=== PATIENT | male | born 1970 | race Caucasian/White ===

== ENCOUNTER → 2017-01-21 | Outpatient (CLI) | payer MEDICARE, MEDICAID ==
[~2017-01-21] VITALS: Ht 162.6 cm; Wt 65.8 kg
[~2017-01-21] MED LIST: ADV100INH INH; ALBU17IN INH; CELE20TA PO; DEPA500T2 PO; FLUT11IN INH; GABA-282 PO; LEXA1TAB PO; LIDOCAINE 2% INJ 100 MG/5 ML SDV (FOR ANES.) As Ordered ONE; NAPR500T PO; NS 1,000 ML IV SCH; OMEP20CA3 PO; OMEP40CA2 PO; PHENYLephrine HCL 500 MCG/5 ML (100MCG/ML) SYRINGE (J2370) As Ordered ONE; PROAIR INH; PROPOFOL 500 MG/50 ML VIAL As Ordered ONE; SERO200T PO; SPIR1CAP INH; TRAZ50TA4 PO; VITA-121 PO; ZYRT10CA PO; no home meds
--- NOTE | 2017-01-21 10:16 | ROOR ---
Patient Name: Casey Ojeda Procedure Date: 01/21/2017 9:53 AM Date of : 1970 Age: 46 Room: [facility] Gender: Male Note Status: Finalized Procedure: Upper GI endoscopy + Biopsies Indications: Heartburn Providers: Kyle Gerber MD Referring MD: Eugenio DEL VALLE MD Requesting Provider: Medicines: Monitored Anesthesia Care Complications: No immediate complications. Procedure: Pre-Anesthesia Assessment: - The heart rate, respiratory rate, oxygen saturations, blood pressure, adequacy of pulmonary ventilation, and response to care were monitored throughout the procedure. The Endoscope was introduced through the mouth, and advanced to the second part of duodenum. The upper GI endoscopy was accomplished without difficulty. The patient tolerated the procedure well. Findings: The Z-line was variable and was found 40 cm from the incisors. One superficial esophageal ulcer with no bleeding and no stigmata of recent bleeding was found 40 cm from the incisors. Biopsies were taken with a cold forceps for histology. A medium-sized hiatal hernia was present. No other significant abnormalities were identified in a careful examination of the stomach. The exam of the duodenum was otherwise normal. Impression: - Z-line variable, 40 cm from the incisors. - Non-bleeding esophageal ulcer. Biopsied. - Medium-sized hiatal hernia. - The examination was otherwise normal. Recommendation: - Await pathology results. - Discharge patient to home. - Continue present medications. - Await pathology results. - Return to referring physician. - Check Portal Online for Path Results. - The findings and recommendations were discussed with the patient's family. Kyle Gerber MD Kyle Gerber MD 01/21/2017 10:15:47 AM This report has been signed electronically. Number of Addenda: 0 Note Initiated On: 01/21/2017 9:53 AM Estimated Blood Loss: Estimated blood loss: none.
--- NOTE | 2017-01-21 10:30 | ROOR ---
Patient Name: Casey Ojeda Procedure Date: 01/21/2017 9:54 AM Date of : 1970 Age: 46 Room: [facility] Gender: Male Note Status: Finalized Procedure: Colonoscopy to Cecum + Biopsy Polypectomy + Biopsies Indications: Clinically significant diarrhea of unexplained origin Providers: Kyle Gerber MD Referring MD: Eugenio DEL VALLE MD Requesting Provider: Medicines: Monitored Anesthesia Care Complications: No immediate complications. Procedure: Pre-Anesthesia Assessment: - The heart rate, respiratory rate, oxygen saturations, blood pressure, adequacy of pulmonary ventilation, and response to care were monitored throughout the procedure. The Colonoscope was introduced through the anus and advanced to the cecum, identified by appendiceal orifice and ileocecal valve. The colonoscopy was performed without difficulty. The patient tolerated the procedure well. The quality of the bowel preparation was excellent. Findings: The perianal and digital rectal examinations were normal. Non-bleeding internal hemorrhoids were found during retroflexion. The hemorrhoids were small and Grade I (internal hemorrhoids that do not prolapse). A small polyp was found at 60 cm proximal to the anus. The polyp was sessile. The polyp was removed with a cold biopsy forceps. Resection and retrieval were complete. Biopsies for histology were taken with a cold forceps from the ascending colon and transverse colon for evaluation of microscopic colitis. The exam was otherwise without abnormality on direct and retroflexion views. Impression: - Non-bleeding internal hemorrhoids. - One small polyp at 60 cm proximal to the anus, removed with a cold biopsy forceps. Resected and retrieved. - The examination was otherwise normal on direct and retroflexion views. - Biopsies were taken with a cold forceps from the ascending colon and transverse colon for evaluation of microscopic colitis. - The exam was otherwise normal to the cecum. Recommendation: - Patient has a contact number available for emergencies. The signs and symptoms of potential delayed complications were discussed with the patient. Return to normal activities tomorrow. Written discharge instructions were provided to the patient. - High fiber diet. - Discharge patient to home. - Continue present medications. - Await pathology results. - Repeat colonoscopy in 5 years for surveillance based on pathology results. - Return to referring physician. - Check Portal Online for Path Results. - The findings and recommendations were discussed with the patient's family. Kyle Gerber MD Kyle Gerber MD 01/21/2017 10:30:30 AM This report has been signed electronically. Number of Addenda: 0 Note Initiated On: 01/21/2017 9:54 AM Estimated Blood Loss: Estimated blood loss: none.
[2017-01-21 10:55] VITALS: BP 126/60
== END ==
LOC: M OPP 08:57
PROVIDERS: ATTEND Internal Medicine Gastroenterology
DX: Z12.11 Encounter for screening for malignant neoplasm of colon (principal); Z80.0 Family history of malignant neoplasm of digestive organs; D12.6 Benign neoplasm of colon, unspecified; K64.0 First degree hemorrhoids; R19.7 Diarrhea, unspecified; R12 Heartburn; K44.9 Diaphragmatic hernia without obstruction or gangrene; K22.10 Ulcer of esophagus without bleeding; K22.8 Other specified diseases of esophagus; F17.200 Nicotine dependence, unspecified, uncomplicated; F41.9 Anxiety disorder, unspecified; F32.9 Major depressive disorder, single episode, unspecified; J45.909 Unspecified asthma, uncomplicated; J44.9 Chronic obstructive pulmonary disease, unspecified; K21.9 Gastro-esophageal reflux disease without esophagitis; R29.818 Other symptoms and signs involving the nervous system; Z79.899 Other long term (current) drug therapy; Z88.2 Allergy status to sulfonamides
CPT/HCPCS: 43239; 45380; 88305; 99156; 99157; J2370

== ENCOUNTER → 2017-04-22 | Outpatient (CLI) | payer MEDICARE, MEDICAID ==
[~2017-04-22] MED LIST changes: -LIDOCAINE 2% INJ 100 MG/5 ML SDV (FOR ANES.) As Ordered ONE; -NS 1,000 ML IV SCH; -PHENYLephrine HCL 500 MCG/5 ML (100MCG/ML) SYRINGE (J2370) As Ordered ONE; -PROPOFOL 500 MG/50 ML VIAL As Ordered ONE; +TRAZ50TA11 PO; -TRAZ50TA4 PO
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
== END | disposition home or self-care (01) ==
LOC: M PAIN 11:20
PROVIDERS: ATTEND Nurse Practitioner Family
DX: G89.29 Other chronic pain (principal); M51.26 Other intervertebral disc displacement, lumbar region; J44.9 Chronic obstructive pulmonary disease, unspecified; K44.9 Diaphragmatic hernia without obstruction or gangrene; F31.9 Bipolar disorder, unspecified; K22.10 Ulcer of esophagus without bleeding; Z79.899 Other long term (current) drug therapy; Z79.51 Long term (current) use of inhaled steroids; Z88.2 Allergy status to sulfonamides; Z88.8 Allergy status to other drugs, medicaments and biological substances; F17.210 Nicotine dependence, cigarettes, uncomplicated

== ENCOUNTER → 2017-05-06 | Outpatient (CLI) | payer MEDICARE, MEDICAID ==
[~2017-05-06] MED LIST changes: +ISOVUE-M 300 61% 15ML VIAL (Q9967) As Ordered ONE; +LIDOCAINE 1% SDV INJ 30 ML VIAL As Ordered ONE; +diazePAM 5 MG TAB As Ordered ONE; +methylPREDNISolone SUSP 40 MG/ML (DEPO-medrol) VIAL (J1030) As Ordered ONE; +oxyCODONE 5MG TAB As Ordered ONE
--- NOTE | 2017-05-06 10:54 | REP ---
Partial lumbar spine series: Four views. History: Injection procedure for pain. 10 seconds of fluoroscopy time is reported. Findings: A sequence of four fluoroscopically obtained last image hold procedural spot radiographs of the lumbar spine document needle position and contrast injection associated with injection procedure. Signed by Abelardo Mayberry MD 05/06/2017 02:28 P
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
== END ==
LOC: M PAIN 08:40
PROVIDERS: ATTEND Anesthesiology
DX: G89.29 Other chronic pain (principal); M51.17 Intervertebral disc disorders with radiculopathy, lumbosacral region; Z79.899 Other long term (current) drug therapy; Z88.2 Allergy status to sulfonamides; J30.9 Allergic rhinitis, unspecified
CPT/HCPCS: 62323; J1030; Q9967

== ENCOUNTER → 2017-05-15 | Outpatient (REF) ==
[~2017-05-15] MED LIST changes: -ISOVUE-M 300 61% 15ML VIAL (Q9967) As Ordered ONE; -LIDOCAINE 1% SDV INJ 30 ML VIAL As Ordered ONE; -diazePAM 5 MG TAB As Ordered ONE; -methylPREDNISolone SUSP 40 MG/ML (DEPO-medrol) VIAL (J1030) As Ordered ONE; -oxyCODONE 5MG TAB As Ordered ONE
== END ==
LOC: M LAB 09:40
PROVIDERS: ATTEND Nurse Practitioner Adult Health
DX: Z02.1 Encounter for pre-employment examination (principal)

== ENCOUNTER → 2017-05-19 | Outpatient (REF) ==
--- NOTE | 2017-05-19 11:21 | REP ---
Chest x-ray PA and lateral: 05/19/2017. Comparison CT chest 09/25/2016, PA chest with ribs 08/29/2016. Clinical history: Employee health. The two views show the lungs hyperinflated. There are bullous emphysematous changes bilaterally in the upper lung zones with giant bulla in the left upper lung zone. Some underlying fibrotic changes and COPD. I see no pleural effusion or lateral pleural thickening. There is no acute infiltrate or mass. Heart is not enlarged. The aorta is normal. Airway is intact. Mediastinal and hilar contours unchanged. Bony thorax shows no acute compression deformity and is stable. There is no free air under the diaphragms. Impression: 1. COPD with bullous emphysematous changes as before with giant bulla in the left upper lung zone. 2. No acute infiltrate, cardiomegaly, edema, atelectasis or other acute finding. Signed by Dhaval Sen MD 05/19/2017 06:57 P
== END ==
LOC: M RAD 10:40
PROVIDERS: ATTEND Nurse Practitioner Adult Health
DX: Z02.1 Encounter for pre-employment examination (principal)

== ENCOUNTER → 2017-05-21 | Outpatient (CLI) | payer MEDICARE, MEDICAID ==
--- NOTE | 2017-06-11 00:35 | ECWPNPC ---
PATIENT NAME: NORMA DODSON : 1970 GENDER: MALE VISIT DATE: 05/21/2017 DISCHARGE DATE: 05/21/17 1110 VISIT LOCKED DATE TIME: PHYSICIAN: KIP MIDDLETON RESOURCE: KIP MIDDLETON REASON FOR APPOINTMENT 1. POST PROCEDURE HISTORY OF PRESENT ILLNESS HISTORY OF PRESENT ILLNESS: PAIN THE PATIENT DESCRIBES THE PAIN... FALL RISK SCREENING: SCREENING :NO FALLS IN THE PAST YEAR TODAY'S VISIT: NOTES: S/P LESB COMPLETED ON05/06/17. PAIN IS NOT CENTERED INNLOW BACK AND IS DESCRIBED ACHY. HAS NO PAIN RADIATINT TO HIPS OR LEGS. NO N/T/IN FEET. HAS PERSISTANT WEAKNESS. HARD TO DO STAIRS. SLEEP REMAINS DISRUPTED THIS IS RETIREMENT. . CURRENT MEDICATIONS TAKING DEPAKOTE ER 500 MG TABLET EXTENDED RELEASE 24 HOUR ORALLY TWICE DAILY TAKING ALBUTEROL SULFATE HFA 108 (90 BASE) MCG/ACT AEROSOL SOLUTION 2 PUFFS NEEDED INHALATION EVERY 4 HRS TAKING OMEPRAZOLE 40 MG CAPSULE DELAYED RELEASE 1 CAPSULE ORALLY ONCE A DAY TAKING CELEXA 20 MG TABLET 1 TABLET ORALLY ONCE A DAY TAKING ZYRTEC 10MG ORALLY DAILY TAKING GABAPENTIN 600 MG TABLET 1 TABLET ORALLY THREE TIMES A DAY TAKING ADVAIR DISKUS 250-50 MCG/DOSE AEROSOL POWDER BREATH ACTIVATED 1 PUFF INHALATION TWICE A DAY TAKING SPIRIVA HANDIHALER 18 MCG CAPSULE INHALATION DAILY TAKING VITAMIN D3 5000 UNIT CAPSULE 1 CAPSULE ORALLY ONCE A DAY TAKING IBUPROFEN 200 MG TABLET 1 TABLET WITH FOOD OR MILK NEEDED ORALLY EVERY 6 HRS MEDICATION LIST REVIEWED AND RECONCILED WITH THE PATIENT PAST MEDICAL HISTORY ASTHMA, COPD ULCERATIVE ESOPHAGUS HIATAL HERNIA DDD WITH EXTRUDED DISCS BIPOLAR ALLERGIES SULFA (FOR ALLERGY USE ONLY): HIVES AND SWELLING: ALLERGY SEASONAL: CONGESTION, ITCHY EYES, : ALLERGY NSAIDS: GI BLEED/ULCERS: CONTRAINDICATION SURGICAL HISTORY CLUB FEET, LEFT LEG TENDON REPAIR OF UPPER THIGH. AT HOSPITALIZATION/MAJOR DIAGNOSTIC PROCEDURE [facility] REVIEW OF SYSTEMS REVIEWED BY: PROVIDER: KIP SUTHERLAND . CONSTITUTIONAL: ANY CHANGE IN YOUR MEDICAL CONDITION? NO . CHILLS NO . FEVER NO . INFECTION: DO YOU HAVE NEW INFECTIONS? NO . DO YOU HAVE HISTORY OF MRSA? NO . MUSCULOSKELETAL: ANY NEW PATTERNS OF PAIN OR NUMBNESS? YES, PT STATES LESI 05/06/17, PREPROCEDURE PAIN WAS 7/10, POST PROCEDURE PAIN WAS 2/10, CREEPING TO 6/10 TODAY . GASTROENTEROLOGY: ANY NEW CHANGE IN BOWEL CONTROL? NO . GENITOURINARY: ANY NEW CHANGE IN BLADDER CONTROL? NO . IS THERE A CHANCE YOU COULD BE ? NO . HEMATOLOGY/LYMPH: DO YOU TAKE ANY BLOOD THINNERS? (FOR EXAMPLE- COUMADIN, PLAVIX, AGGRENOX, PLATEL, PRADAXA, OR XARELTO) NO . WHEN WAS YOUR LAST DOSE? DATE: TIME: . NEUROLOGY: HAVE YOU FALLEN IN THE PAST 6 MONTHS? NO . ANY NEW EXTREMITY NUMBNESS OR WEAKNESS? NO . CARDIOLOGY: DO YOU HAVE A PACEMAKER OR DEFIBRILLATOR? NO . RESPIRATORY: HAVE YOU BEEN SICK IN THE PAST WEEK? NO . FEVER NO . FLU LIKE SYMPTOMS? NO . COUGH NO . INTEGUMENTARY: DO YOU HAVE ANY RASHES OR OPEN SORES? NO . ALLERGIC/IMMUNO: ARE YOU ALLERGIC TO SHELLFISH OR IV DYE? NO . ANY NEW ALLERGIES? NO . PSYCHIATRIC: DO YOU HAVE THOUGHTS OF HURTING YOURSELF OR SOMEONE ELSE? NO . ARE YOU ABUSED, NEGLECTED, OR IN AN UNSAFE ENVIRONMENT? NO . ENDOCRINOLOGY: ARE YOU DIABETIC? NO . OTHER: DO YOU NEED ANY PRESCRIPTIONS? NO . IF YES, PLEASE LIST: ____ . ANY NEW PROBLEMS WITH YOUR MEDICATIONS? NO . WHEN DID YOU LAST EAT? ____ . WHEN DID YOU LAST DRINK? ____ . WHAT DID YOU LAST DRINK? ____ . NAME OF PERSON DRIVING YOU HOME? ____ . DO YOU HAVE ANY OTHER QUESTIONS OR CONCERNS NO . VITAL SIGNS WT 150.6 LBS, HT 64 IN, BMI 25.85 INDEX, BP 142/93 MM HG, HR 69 /MIN, RR 18 /MIN, TEMP 98.5 F, OXYGEN SAT % 96, SAFE IN ENV? (Y/N) YES, NA INITIALS MP 1030. EXAMINATION GENERAL EXAMINATION: PSYCHALERT , ORIENTED X 3 , APPROPRIATE MOOD AND AFFECT . LUNGS:CLEAR TO AUSCULTATION BILATERALLY. HEART:HEART RATE REGULAR, NORMAL S1S2, NO MURMURS, CLICK OR RUBS. MUSCULOSKELETAL:POINT TENDERNERNESS OVER LUMBAR SPINOUS PROCESSES, TRIGGER POINTS AND TIGHT FIBROUS BANDS OVER LUMBOSACRAL SXIS. MUSCLE STRENGTH TESTING 5/5 RIGHT UPPER AND LOWER EXTREMITIES, AND IN LEFT UPPER EXTREMITY; 5-/5 IN LEFT LOWER EXTREMITY. . NEUROLOGIC EXAM:DTR'S 4+ WITH CLONUS RIGHTLOWER EXTREMITY , 2 + WITHOUT CLONUS LEFT. NO SENSORY DEFIECIT TO IGHT TOUCH LOWER EXTREMITES. PLANTAR RESPONSE IS FLEXOR.. 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 TREATMENT INTERVERTEBRAL DISC DISORDERS WITH RADICULOPATHY, LUMBOSACRAL REGION START TIZANIDINE HCL TABLET, 2 MG, 1 TABLET NEEDED, ORALLY, BID, 30 DAY(S), 60 TABLET, REFILLS 0 INJECTION FACET JOINT/NERVE LUMBAR/SACRALKIP MIDDLETON 05/21/2017 11:00:43 AM > THERAPEUTIC BILATERAL LUMBAR FACET BLOCK PROCEDURE CODES FA211 ESTABILISHED PATIENT [facility] FACILITY CHARGE G8730 PAIN ASSESS POS TOOL F/U PLAN DOC G8427 DOC MEDS VERIFIED W/PT OR RE DISPOSITION & COMMUNICATION FOLLOW UP AFTER INJECTION (REASON: CHECK AUTH FOR [facility] [employer] LUMBAR FACET BLOCK AT L3-4, L4-5 AND L5-S1) ELECTRONICALLY SIGNED BY DELVIN BAL ON 06/10/2017 AT 06:13 PM EDT DISCLAIMER : THIS IS A VISIT SUMMARY EXTRACTED FROM THE [employer] CHART. IT IS NOT A COPY OF THE [employer] PROGRESS NOTE. GENEVIEVE
== END | disposition home or self-care (01) ==
LOC: M PAIN 10:00
PROVIDERS: ATTEND Nurse Practitioner Family
DX: G89.29 Other chronic pain (principal); M51.17 Intervertebral disc disorders with radiculopathy, lumbosacral region; M12.88 Other specific arthropathies, not elsewhere classified, other specified site; J44.9 Chronic obstructive pulmonary disease, unspecified; F31.9 Bipolar disorder, unspecified; Z79.899 Other long term (current) drug therapy; Z79.51 Long term (current) use of inhaled steroids; Z88.2 Allergy status to sulfonamides; Z88.8 Allergy status to other drugs, medicaments and biological substances

== ENCOUNTER → 2017-06-03 | Outpatient (CLI) | payer MEDICARE, MEDICAID ==
--- NOTE | 2017-06-24 01:51 | ECWPNPC ---
PATIENT NAME: NORMA DODSON : 1970 GENDER: MALE VISIT DATE: 06/03/2017 DISCHARGE DATE: 06/03/17 1349 VISIT LOCKED DATE TIME: PHYSICIAN: NICHOLAS STEEN RESOURCE: NICHOLAS STEEN REASON FOR APPOINTMENT 1. LOW BACK PAIN HISTORY OF PRESENT ILLNESS HISTORY OF PRESENT ILLNESS: PAIN THE PATIENT DESCRIBES THE PAIN... 47 YEAR OLD MALE PATIENT WITH HISTORY OF CHRONIC LOW BACK PAIN. PATIENT DESCRIBES HIS PAIN ACHING AND HAVING IT ALL THE TIME WITH A PAIN SCORE OF 6/10. PATIENT REPORTS BEING ON AN 6 MONTH ANTIBIOTIC FOR TB PROFILAXIS. CURRENTLY THE PATIENT IS JUST USING TIZANIDINE FOR THE PAIN THIS TIME. EPIDURAL INJECTION IN THE PAST HAS HELP HIM WITH THE LEG PAIN. PATIENT DENIES UNEXPLAINABLE WEIGHT LOSS, FEVER, CHILLS, NEW CHANGES ON HIS URINARY OR BOWEL CONTROL. FALL RISK SCREENING: SCREENING :NO FALLS IN THE PAST YEAR CURRENT MEDICATIONS TAKING DEPAKOTE ER 500 MG TABLET EXTENDED RELEASE 24 HOUR ORALLY TWICE DAILY TAKING ALBUTEROL SULFATE HFA 108 (90 BASE) MCG/ACT AEROSOL SOLUTION 2 PUFFS NEEDED INHALATION EVERY 4 HRS TAKING OMEPRAZOLE 40 MG CAPSULE DELAYED RELEASE 1 CAPSULE ORALLY ONCE A DAY TAKING CELEXA 20 MG TABLET 1 TABLET ORALLY ONCE A DAY TAKING ZYRTEC 10MG ORALLY DAILY TAKING GABAPENTIN 600 MG TABLET 1 TABLET ORALLY THREE TIMES A DAY TAKING ADVAIR DISKUS 250-50 MCG/DOSE AEROSOL POWDER BREATH ACTIVATED 1 PUFF INHALATION TWICE A DAY TAKING SPIRIVA HANDIHALER 18 MCG CAPSULE INHALATION DAILY TAKING TIZANIDINE HCL 2 MG TABLET 1 TABLET NEEDED ORALLY BID TAKING ISONIAZID 300 MG TABLET 1 TABLET ORALLY ONCE A DAY TAKING VITAMIN B6 200 MG TABLET 1 TABLET ORALLY ONCE A DAY DISCONTINUED VITAMIN D3 5000 UNIT CAPSULE 1 CAPSULE ORALLY ONCE A DAY DISCONTINUED IBUPROFEN 200 MG TABLET 1 TABLET WITH FOOD OR MILK NEEDED ORALLY EVERY 6 HRS MEDICATION LIST REVIEWED AND RECONCILED WITH THE PATIENT PAST MEDICAL HISTORY ASTHMA, COPD ULCERATIVE ESOPHAGUS HIATAL HERNIA DDD WITH EXTRUDED DISCS BIPOLAR LATANT TB ALLERGIES SULFA (FOR ALLERGY USE ONLY): HIVES AND SWELLING: ALLERGY SEASONAL: CONGESTION, ITCHY EYES, : ALLERGY NSAIDS: GI BLEED/ULCERS: CONTRAINDICATION REVIEW OF SYSTEMS REVIEWED BY: PROVIDER: NICHOLAS STEEN MD . CONSTITUTIONAL: ANY CHANGE IN YOUR MEDICAL CONDITION? YES, DIAGNOSED WITH LATENT TB AND IS NOW ON ANTIBIOTICS . CHILLS NO . FEVER NO . INFECTION: DO YOU HAVE NEW INFECTIONS? NO . DO YOU HAVE HISTORY OF MRSA? NO . MUSCULOSKELETAL: ANY NEW PATTERNS OF PAIN OR NUMBNESS? NO . GASTROENTEROLOGY: ANY NEW CHANGE IN BOWEL CONTROL? NO . GENITOURINARY: ANY NEW CHANGE IN BLADDER CONTROL? NO . IS THERE A CHANCE YOU COULD BE ? NO . HEMATOLOGY/LYMPH: DO YOU TAKE ANY BLOOD THINNERS? (FOR EXAMPLE- COUMADIN, PLAVIX, AGGRENOX, PLATEL, PRADAXA, OR XARELTO) NO . WHEN WAS YOUR LAST DOSE? DATE: TIME: . NEUROLOGY: HAVE YOU FALLEN IN THE PAST 6 MONTHS? NO . ANY NEW EXTREMITY NUMBNESS OR WEAKNESS? NO . CARDIOLOGY: DO YOU HAVE A PACEMAKER OR DEFIBRILLATOR? NO . RESPIRATORY: HAVE YOU BEEN SICK IN THE PAST WEEK? NO . FEVER NO . FLU LIKE SYMPTOMS? NO . COUGH NO . INTEGUMENTARY: DO YOU HAVE ANY RASHES OR OPEN SORES? NO . ALLERGIC/IMMUNO: ARE YOU ALLERGIC TO SHELLFISH OR IV DYE? NO . ANY NEW ALLERGIES? NO . PSYCHIATRIC: DO YOU HAVE THOUGHTS OF HURTING YOURSELF OR SOMEONE ELSE? NO . ARE YOU ABUSED, NEGLECTED, OR IN AN UNSAFE ENVIRONMENT? NO . ENDOCRINOLOGY: ARE YOU DIABETIC? NO . OTHER: DO YOU NEED ANY PRESCRIPTIONS? YES . IF YES, PLEASE LIST: TIZANIDINE . ANY NEW PROBLEMS WITH YOUR MEDICATIONS? NO . WHEN DID YOU LAST EAT? ____ . WHEN DID YOU LAST DRINK? ____ . WHAT DID YOU LAST DRINK? ____ . NAME OF PERSON DRIVING YOU HOME? ____ . DO YOU HAVE ANY OTHER QUESTIONS OR CONCERNS NO . VITAL SIGNS WT 152 LBS, HT 64 IN, BMI 26.09 INDEX, BP 138/82 MM HG, HR 70 /MIN, RR 18 /MIN, TEMP 98.2 F, OXYGEN SAT % 99%, NA INITIALS AW 1131, REVIEWED BY: CM. EXAMINATION : PATIENT IS ALERT O X 3 AND COOPERATIVE. TENDERNESS IN THE LOWER BACK AND PARASPINAL MUSCLE GROUP. MRI DONE ON 06/24/16 OF THE LUMBAR SPINE SHOWS DEGENERATIVE DIS DISEASE AND A DISC EXTRUSION AT L5-S1. ASSESSMENTS INTERVERTEBRAL DISC DISORDERS WITH RADICULOPATHY, LUMBAR REGION - M51.16 (PRIMARY) TREATMENT INTERVERTEBRAL DISC DISORDERS WITH RADICULOPATHY, LUMBAR REGION NOTES: WE DISCUSSED SEVERAL ISSUES WITH MR. DODSON'S PAIN MANAGEMENT CASE. AT THIS TIME THE PATIENT WILL CONTINUE WITH THE SAME MEDICATION REGIME BEFORE. I WOULD LIKE TO SPEAK WITH THE PATIENT'S PRIMARY DOCTOR ABOUT HOW TO MOVE FORWARD WITH INTERVENTIONS. NO INTERVENTIONS WILL BE HELD UNTIL I SPEAK WITH THE PRIMARY. HE IS CANDIDATE FOR FACET BLOCK V/S EPIDURALS DEPENDING ON THE CHARACTER OF THE PAIN. PATIENT WILL FOLLOW UP IN 3 WEEKS TO DISCUSS MEDICATION MANAGEMENT. INSTRUCTIONS WERE GIVEN, QUESTIONS WERE ANSWERED, PATIENT REPORTS UNDERSTANDING AND AGREES WITH THE PLAN. I, SANDY ARAGON, DOCUMENTED THE ABOVE INFORMATION ACTING A SCRIBE FOR DR. STEEN. I HAVE REVIEWED THE ABOVE DOCUMENT, WRITTEN BY SANDY TURKIBTrish AND I VERIFY THAT IT IS ACCURATE. PROCEDURE CODES FA211 ESTABILISHED PATIENT [facility] FACILITY CHARGE G8427 DOC MEDS VERIFIED W/PT OR RE G8730 PAIN ASSESS POS TOOL F/U PLAN DOC DISPOSITION & COMMUNICATION FOLLOW UP 3 WEEKS ELECTRONICALLY SIGNED BY NICHOLAS STEEN MD ON 06/23/2017 AT 12:29 PM EDT DISCLAIMER : THIS IS A VISIT SUMMARY EXTRACTED FROM THE [employer] CHART. IT IS NOT A COPY OF THE [employer] PROGRESS NOTE. GENEVIEVE
== END | disposition home or self-care (01) ==
LOC: M PAIN 11:15
PROVIDERS: ATTEND Anesthesiology
DX: G89.29 Other chronic pain (principal); M51.16 Intervertebral disc disorders with radiculopathy, lumbar region; J44.9 Chronic obstructive pulmonary disease, unspecified; K44.9 Diaphragmatic hernia without obstruction or gangrene; F31.9 Bipolar disorder, unspecified; K22.10 Ulcer of esophagus without bleeding; R76.11 Nonspecific reaction to tuberculin skin test without active tuberculosis; Z79.899 Other long term (current) drug therapy; Z79.51 Long term (current) use of inhaled steroids; Z88.2 Allergy status to sulfonamides; Z88.8 Allergy status to other drugs, medicaments and biological substances

== ENCOUNTER → 2017-06-15 | Outpatient (CLI) | payer MEDICARE, MEDICAID ==
--- NOTE | 2017-06-25 00:18 | ECWPNPC ---
PATIENT NAME: NORMA DODSON : 1970 GENDER: MALE VISIT DATE: 06/15/2017 DISCHARGE DATE: 06/15/17 1404 VISIT LOCKED DATE TIME: PHYSICIAN: KIP MIDDLETON RESOURCE: KIP MIDDLETON REASON FOR APPOINTMENT 1. LOW BACK HISTORY OF PRESENT ILLNESS HISTORY OF PRESENT ILLNESS: PAIN THE PATIENT DESCRIBES THE PAIN... FALL RISK SCREENING: SCREENING :NO FALLS IN THE PAST YEAR TODAY'S VISIT: NOTES: SAW DR DEL VALLE WHO FEELS THAT HE CAN HAVE HIS INJECTION IN ABOUT 2 MORE WEEKS. PER PT, DR DEL VALLE STATED HE WOULD FOLLOWUP WITH DR STEEN.RATES PAIN LEVEL TODAY 6/10. DESCRIBES PAIN ACHING AND SHOOTING. PAIN IS CENTERED IN LOW BACK HAS BEEN STARTED ON ABX FOR LATENT TB. 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 REPORTS PAIN LEVEL LOW BACK IS 6/10. NOTES PAIN IS WORSE AT THE END OF HIS WORK DAY AND AFTER HEAVY LIFTING. DESCRIBES PAIN ACHING AND SHOOTING. NOT RADIATION OF PAIN TO THE LEGS. CURRENT MEDICATIONS TAKING DEPAKOTE ER 500 MG TABLET EXTENDED RELEASE 24 HOUR ORALLY TWICE DAILY TAKING ALBUTEROL SULFATE HFA 108 (90 BASE) MCG/ACT AEROSOL SOLUTION 2 PUFFS NEEDED INHALATION EVERY 4 HRS TAKING OMEPRAZOLE 40 MG CAPSULE DELAYED RELEASE 1 CAPSULE ORALLY ONCE A DAY TAKING CELEXA 20 MG TABLET 1 TABLET ORALLY ONCE A DAY TAKING ZYRTEC 10MG ORALLY DAILY TAKING GABAPENTIN 600 MG TABLET 1 TABLET ORALLY THREE TIMES A DAY TAKING ADVAIR DISKUS 250-50 MCG/DOSE AEROSOL POWDER BREATH ACTIVATED 1 PUFF INHALATION TWICE A DAY TAKING SPIRIVA HANDIHALER 18 MCG CAPSULE INHALATION DAILY TAKING TIZANIDINE HCL 2 MG TABLET 1 TABLET NEEDED ORALLY BID, NOTES: PT HAS NOT RECEIVED YET TAKING ISONIAZID 300 MG TABLET 1 TABLET ORALLY ONCE A DAY TAKING VITAMIN B6 200 MG TABLET 1 TABLET ORALLY ONCE A DAY MEDICATION LIST REVIEWED AND RECONCILED WITH THE PATIENT PAST MEDICAL HISTORY ASTHMA, COPD ULCERATIVE ESOPHAGUS HIATAL HERNIA DDD WITH EXTRUDED DISCS BIPOLAR LATANT TB ALLERGIES SULFA (FOR ALLERGY USE ONLY): HIVES AND SWELLING: ALLERGY SEASONAL: CONGESTION, ITCHY EYES, : ALLERGY NSAIDS: GI BLEED/ULCERS: CONTRAINDICATION SURGICAL HISTORY CLUB FEET, LEFT LEG TENDON REPAIR OF UPPER THIGH. AT HOSPITALIZATION/MAJOR DIAGNOSTIC PROC[facility]URE [facility] REVIEW OF SYSTEMS REVIEWED BY: PROVIDER: KIP PORTERP . CONSTITUTIONAL: ANY CHANGE IN YOUR MEDICAL CONDITION? NO . CHILLS NO . FEVER NO . INFECTION: DO YOU HAVE NEW INFECTIONS? NO . DO YOU HAVE HISTORY OF MRSA? NO . MUSCULOSKELETAL: ANY NEW PATTERNS OF PAIN OR NUMBNESS? NO . GASTROENTEROLOGY: ANY NEW CHANGE IN BOWEL CONTROL? NO . GENITOURINARY: ANY NEW CHANGE IN BLADDER CONTROL? NO . IS THERE A CHANCE YOU COULD BE ? NO . HEMATOLOGY/LYMPH: DO YOU TAKE ANY BLOOD THINNERS? (FOR EXAMPLE- COUMADIN, PLAVIX, AGGRENOX, PLATEL, PRADAXA, OR XARELTO) NO . WHEN WAS YOUR LAST DOSE? DATE: TIME: . NEUROLOGY: HAVE YOU FALLEN IN THE PAST 6 MONTHS? NO . ANY NEW EXTREMITY NUMBNESS OR WEAKNESS? NO . CARDIOLOGY: DO YOU HAVE A PACEMAKER OR DEFIBRILLATOR? NO . RESPIRATORY: HAVE YOU BEEN SICK IN THE PAST WEEK? NO . FEVER NO . FLU LIKE SYMPTOMS? NO . COUGH NO . INTEGUMENTARY: DO YOU HAVE ANY RASHES OR OPEN SORES? NO . ALLERGIC/IMMUNO: ARE YOU ALLERGIC TO SHELLFISH OR IV DYE? NO . ANY NEW ALLERGIES? NO . PSYCHIATRIC: DO YOU HAVE THOUGHTS OF HURTING YOURSELF OR SOMEONE ELSE? NO . ARE YOU ABUSED, NEGLECTED, OR IN AN UNSAFE ENVIRONMENT? NO . ENDOCRINOLOGY: ARE YOU DIABETIC? NO . OTHER: DO YOU NEED ANY PRESCRIPTIONS? NO . IF YES, PLEASE LIST: ____ . ANY NEW PROBLEMS WITH YOUR MEDICATIONS? YES, PT STATES HE NEVER RECEIVED TIZANIDINE, [facility] TOLD HIM THEY NEVER RECEIVED THE ORDER . WHEN DID YOU LAST EAT? ____ . WHEN DID YOU LAST DRINK? ____ . WHAT DID YOU LAST DRINK? ____ . NAME OF PERSON DRIVING YOU HOME? ____ . DO YOU HAVE ANY OTHER QUESTIONS OR CONCERNS NO . VITAL SIGNS WT 150 LBS, HT 64 IN, BMI 25.74 INDEX, BP 167/89 MM HG, HR 69 /MIN, RR 18 /MIN, TEMP 97.0 F, OXYGEN SAT % 99%, NA INITIALS AW 1317, REVIEWED BY: EM. EXAMINATION GENERAL EXAMINATION: PSYCHALERT , ORIENTED X 3 , APPROPRIATE MOOD AND AFFECT . LUNGS:CLEAR TO AUSCULTATION BILATERALLY. HEART:HEART RATE REGULAR, NORMAL S1S2, NO MURMURS, CLICK OR RUBS. MUSCULOSKELETAL:POINT TENDERNERNESS OVER LUMBAR SPINOUS PROCESSES, TRIGGER POINTS AND TIGHT FIBROUS BANDS OVER LUMBOSACRAL SXIS. MUSCLE STRENGTH TESTING 5/5 UPPER AND LOWER EXTREMITIES. NEUROLOGIC EXAM:DTR'S 4+ WITH CLONUS RIGHTLOWER EXTREMITY , 2 + WITHOUT CLONUS LEFT. NO SENSORY DEFIECIT TO IGHT TOUCH LOWER EXTREMITES. PLANTAR RESPONSE IS FLEXOR.. 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 TREATMENT INTERVERTEBRAL DISC DISORDERS WITH RADICULOPATHY, LUMBOSACRAL REGION REFILL TIZANIDINE HCL TABLET, 2 MG, 1 TABLET NEEDED, ORALLY, BID, 30 DAY(S), 60 TABLET, REFILLS 0 NOTES: SCHEDULE FOR THERAPEUTIC LUMBAR FACET BLOCK ,FACET JOINT INJECTION MATERIAL WAS PRINTED, REVIEWED AND GIVEN TO PT. PROCEDURE CODES FA211 ESTABILISHED PATIENT [facility] FACILITY CHARGE G8730 PAIN ASSESS POS TOOL F/U PLAN DOC G8427 DOC MEDS VERIFIED W/PT OR RE DISPOSITION & COMMUNICATION FOLLOW UP AFTER INJECTION (REASON: LOW BACK PAIN) ELECTRONICALLY SIGNED BY DELVIN BAL ON 06/24/2017 AT 08:49 AM EDT DISCLAIMER : THIS IS A VISIT SUMMARY EXTRACTED FROM THE [employer] CHART. IT IS NOT A COPY OF THE [employer] PROGRESS NOTE. GENEVIEVE
== END | disposition home or self-care (01) ==
LOC: M PAIN 13:15
PROVIDERS: ATTEND Nurse Practitioner Family
DX: G89.29 Other chronic pain (principal); M51.17 Intervertebral disc disorders with radiculopathy, lumbosacral region; M12.88 Other specific arthropathies, not elsewhere classified, other specified site; J44.9 Chronic obstructive pulmonary disease, unspecified; K22.10 Ulcer of esophagus without bleeding; K44.9 Diaphragmatic hernia without obstruction or gangrene; F31.9 Bipolar disorder, unspecified; R76.11 Nonspecific reaction to tuberculin skin test without active tuberculosis; Z79.899 Other long term (current) drug therapy; Z79.51 Long term (current) use of inhaled steroids; Z88.2 Allergy status to sulfonamides; Z88.8 Allergy status to other drugs, medicaments and biological substances

== ENCOUNTER → 2017-06-18 | Outpatient (REF) | payer MEDICARE, MEDICAID ==
[2017-06-18 14:35] LABS: ALBUMIN 3.5 GM/DL (3.2-5.2); ALBUMIN/GLOBULIN RATIO 0.95 (1.00-1.93); ALKALINE PHOSPHATASE 52 U/L (45-117); ALT/SGPT 29 U/L (12-78); ANION GAP 10 MEQ/L (8-16); AST/SGOT 27 U/L (15-37); BILIRUBIN,DIRECT < 0.1 MG/DL (0.0-0.2); BILIRUBIN,TOTAL 0.3 MG/DL (0.2-1.0); BLOOD UREA NITROGEN 13 MG/DL (7-18); CALCIUM LEVEL 8.7 MG/DL (8.5-10.1); CARBON DIOXIDE LEVEL 26 MEQ/L (21-32); CHLORIDE LEVEL 107 MEQ/L (98-107); CREATININE FOR GFR 0.67 MG/DL (0.70-1.30); GLOMERULAR FILTRATION RATE > 60.0 (>60); GLUCOSE, FASTING 85 MG/DL (70-105); POTASSIUM SERUM 4.8 MEQ/L (3.5-5.1); SODIUM LEVEL 143 MEQ/L (136-145); TOTAL PROTEIN 7.2 GM/DL (6.4-8.2)
[2017-06-18 18:30] LABS: MEAN CORPUSCULAR HGB CONC 33.5 g/dl (32.0-36.5); MEAN CORPUSCULAR VOLUME 101.3 fl (80.0-96.0); RED CELL DISTRIBUTION WIDTH 13.2 % (11.5-14.5); WHITE BLOOD COUNT 7.7 K/mm3 (4.0-10.0)
[2017-06-18 19:13] LABS: BANDS 2 % (< 11); EOSINOPHILS 2 % (0-5)
== END ==
LOC: M LAB REF 11:16
PROVIDERS: ATTEND Internal Medicine Pulmonary Disease
DX: R76.11 Nonspecific reaction to tuberculin skin test without active tuberculosis (principal)

== ENCOUNTER → 2017-06-29 | Outpatient (REF) | payer MEDICARE, MEDICAID | LOC: M SFHCPLAZ 09:47 | PROVIDERS: ATTEND Family Medicine | DX: N39.41 Urge incontinence (principal) | CPT/HCPCS: 81001; 87086; G0463 ==

== ENCOUNTER → 2017-07-06 | Outpatient (CLI) | payer MEDICARE, MEDICAID ==
[~2017-07-06] MED LIST changes: +BUPIVACAINE HCL 0.25% 30 ML VIAL As Ordered ONE; +ISOVUE-M 300 61% 15ML VIAL (Q9967) As Ordered ONE; +LIDOCAINE 1% SDV INJ 30 ML VIAL As Ordered ONE; +TRIAMCINOLONE ACETONIDE SUSP 40 MG/ML VIAL (J3301) As Ordered ONE; +diazePAM 5 MG TAB As Ordered ONE; +oxyCODONE 5MG TAB As Ordered ONE
--- NOTE | 2017-07-06 10:50 | REP ---
Partial lumbar spine series: Two views . History: Injection procedure for pain. 36 seconds of fluoroscopy time is reported. Findings: A sequence of two fluoroscopically obtained last image hold procedural spot radiographs of the lumbar spine document needle position and contrast injection associated with injection procedure. Signed by Abelardo Mayberry MD 07/06/2017 10:42 A
--- NOTE | 2017-07-07 00:53 | ECWPNPC ---
PATIENT NAME: NORMA DODSON : 1970 GENDER: MALE VISIT DATE: 07/06/2017 DISCHARGE DATE: 07/06/17 1015 VISIT LOCKED DATE TIME: PHYSICIAN: NICHOLAS STEEN RESOURCE: NICHOLAS STEEN REASON FOR APPOINTMENT 1. LUCI THER LUMBAR FACET HISTORY OF PRESENT ILLNESS HISTORY OF PRESENT ILLNESS: PAIN THE PATIENT DESCRIBES THE PAIN... FALL RISK SCREENING: SCREENING :NO FALLS IN THE PAST YEAR CURRENT MEDICATIONS TAKING ZYRTEC 10MG ORALLY DAILY, NOTES: TAKING VITAMIN B6 200 MG TABLET 1 TABLET ORALLY ONCE A DAY, NOTES: 07/05/17 TAKING ISONIAZID 300 MG TABLET 1 TABLET ORALLY ONCE A DAY, NOTES: 07/05/18 TAKING GABAPENTIN 600 MG TABLET 1 TABLET ORALLY THREE TIMES A DAY, NOTES: TAKING ALBUTEROL SULFATE HFA 108 (90 BASE) MCG/ACT AEROSOL SOLUTION 2 PUFFS NEEDED INHALATION EVERY 4 HRS, NOTES: HASN'T USED IN AWHILE TAKING SPIRIVA HANDIHALER 18 MCG CAPSULE INHALATION DAILY, NOTES: 07/05/17 TAKING OMEPRAZOLE 40 MG CAPSULE DELAYED RELEASE 1 CAPSULE ORALLY ONCE A DAY, NOTES: 07/05/17 TAKING TIZANIDINE HCL 2 MG TABLET 1 TABLET NEEDED ORALLY BID, NOTES: 07/05/17 TAKING DEPAKOTE ER 500 MG TABLET EXTENDED RELEASE 24 HOUR ORALLY TWICE DAILY, NOTES: 07/05/17 TAKING CELEXA 20 MG TABLET 1 TABLET ORALLY ONCE A DAY, NOTES: 07/05/17 TAKING NICODERM CQ 21 MG/24HR PATCH 24 HOUR 1 PATCH TO SKIN TRANSDERMAL ONCE A DAY, NOTES: 2 DAYS AGO TAKING BUPROPION HCL ER (SR) 150 MG TABLET EXTENDED RELEASE 12 HOUR 1 TABLET DAILY FOR 3 DAYS, THEN 1 TABLET TWICE DAILY ORALLY TWICE A DAY, NOTES: HASN'T STARTED YET TAKING SEREVENT DISKUS 50 MCG/DOSE AEROSOL POWDER BREATH ACTIVATED 2 PUFFS INHALATION TWICE A DAY, NOTES: 07/05/17 DISCONTINUED ADVAIR DISKUS 250-50 MCG/DOSE AEROSOL POWDER BREATH ACTIVATED 1 PUFF INHALATION TWICE A DAY MEDICATION LIST REVIEWED AND RECONCILED WITH THE PATIENT PAST MEDICAL HISTORY COPD - DR. CAIN LATENT TB - DR. CAIN ULCERATIVE ESOPHAGUS, HIATAL HERNIA - DR. MOE DDD WITH EXTRUDED DISCS - DR. STEEN OCCIPITAL NEURALGIA - DR. COLLINS BIPOLAR DO ALLERGIES SULFA (FOR ALLERGY USE ONLY): HIVES AND SWELLING: ALLERGY SEASONAL: CONGESTION, ITCHY EYES, : ALLERGY NSAIDS: GI BLEED/ULCERS: CONTRAINDICATION SOCIAL HISTORY GENERAL: TOBACCO USE ARE YOU A:CURRENT SMOKER HOW MANY CIGARETTES A DAY DO YOU SMOKE?11-20 HOW SOON AFTER YOU WAKE UP DO YOU SMOKE YOUR FIRST CIGARETTE?WITHIN 5 MIN HOW OFTEN DO YOU SMOKE CIGARETTES?EVERY DAY PATIENT COUNSELED ON THE DANGERS OF TOBACCO USE AND URGED TO QUIT:07/06/2017 ARE YOU INTERESTED IN QUITTING?READY TO QUIT PREVIOUS QUIT ATTEMPTS?YES, MORE THAN 6 MONTHS AGO. TRIED BUT NOT SUCCESSFUL COUNSELED THE PATIENT ON TOBACCO USE, CESSATION [id number]/18/2017 SMOKING CESSATION INFORMATION GIVEN07/06/2017 LUNG CANCER SCREENING SMOKING STATUS:CURRENT SMOKER ALCOHOL SCREENING DID YOU HAVE A DRINK CONTAINING ALCOHOL IN THE PAST YEAR?YES HOW MANY DRINKS DID YOU HAVE ON A TYPICAL DAY WHEN YOU WERE DRINKING IN THE PAST YEAR?7 TO 9 (3 POINTS) [id number] INTERPRETATIONPOSITIVE HOW OFTEN DID YOU HAVE A DRINK CONTAINING ALCOHOL IN THE PAST YEAR?FOUR OR MORE TIMES A WEEK (4 POINTS) HOW OFTEN DID YOU HAVE SIX OR MORE DRINKS ON ONE OCCASION IN THE PAST YEAR?DAILY OR ALMOST DAILY (4 POINTS) RECREATIONAL DRUG USE DRUG USE?YES HOW OFTEN AND HOW MUCH? OCCASIONALLY, LAST USED 6 MONTHS AGO CAFFEINE CAFFEINE USE?YES HOW OFTEN AND HOW MUCH? 10 BEVERAGES DAILY SEXUAL HX HAD SEX IN THE LAST 12 MONTHS (VAGINAL, ORAL, OR ANAL)?YES WITHWOMEN ONLY USE PROTECTION?NO PREVENTION STRATEGIES DISCUSSED:CONDOMS HAVE YOU EVER HAD AN STD?NO HIV / HEP-C SCREENING HIV TEST OFFERED TO PATIENT:YES DATE OFFERED:06/29/2017 TEST ACCEPTED:NO REASON:PATIENT DECLINED HEP-C TEST OFFERED TO PATIENT:NO BUDDHIST [id number] NONE LANGUAGE LANGUAGES SPOKEN:LITHUANIAN EDUCATION LEVEL OF EDUCATION:FINISHED HIGH SCHOOL LEARNING BARRIERS / SPECIAL NEEDS CHANGE FROM LAST VISIT?YES BARRIERS TO LEARNING?NO HEARING IMPAIRED?NO VISION IMPAIRED?YES :CORRECTIVE LENSES HAS GLASSES BUT DOESN'T WEAR THEM OFTEN. COGNITIVELY IMPAIRED?NO READINESS TO LEARN?YES LEARNING PREFERENCES?NO LEARNING CAPABILITIES PRESENT?YES EMOTIONAL BARRIERS?NO SPECIAL DEVICES?NO PIZZA COOK NEEDED?NO PAIN CLINIC PFS, CLERGY, PUBLIC HEALTH REFERRALS HAS THE PATIENT BEEN EDUCATED REGARDING HIS/HER PLAN OF CARE?YES HAS THE PATIENT BEEN EDUCATED REGARDING PAIN, THE RISK FOR PAIN, THE IMPORTANCE OF EFFECTIVE PAIN MANAGEMENT, AND THE PAIN ASSESSMENT PROCESS?YES PATIENT: ____. ADVANCE DIRECTIVES HEALTH CARE PROXY?NO WOULD YOU LIKE MORE INFORMATION? THINKS HE HAS THE INFORMATION AT HOME REVIEW OF SYSTEMS REVIEWED BY: PROVIDER: . CONSTITUTIONAL: ANY CHANGE IN YOUR MEDICAL CONDITION? NO . CHILLS NO . FEVER NO . INFECTION: DO YOU HAVE NEW INFECTIONS? NO . DO YOU HAVE HISTORY OF MRSA? NO . MUSCULOSKELETAL: ANY NEW PATTERNS OF PAIN OR NUMBNESS? NO . GASTROENTEROLOGY: ANY NEW CHANGE IN BOWEL CONTROL? NO . GENITOURINARY: ANY NEW CHANGE IN BLADDER CONTROL? NO . IS THERE A CHANCE YOU COULD BE ? NO . HEMATOLOGY/LYMPH: DO YOU TAKE ANY BLOOD THINNERS? (FOR EXAMPLE- COUMADIN, PLAVIX, AGGRENOX, PLATEL, PRADAXA, OR XARELTO) NO . WHEN WAS YOUR LAST DOSE? DATE: TIME: . NEUROLOGY: HAVE YOU FALLEN IN THE PAST 6 MONTHS? NO . ANY NEW EXTREMITY NUMBNESS OR WEAKNESS? NO . CARDIOLOGY: DO YOU HAVE A PACEMAKER OR DEFIBRILLATOR? NO . RESPIRATORY: HAVE YOU BEEN SICK IN THE PAST WEEK? NO . FEVER NO . FLU LIKE SYMPTOMS? NO . COUGH NO . INTEGUMENTARY: DO YOU HAVE ANY RASHES OR OPEN SORES? NO . ALLERGIC/IMMUNO: ARE YOU ALLERGIC TO SHELLFISH OR IV DYE? NO . ANY NEW ALLERGIES? NO . PSYCHIATRIC: DO YOU HAVE THOUGHTS OF HURTING YOURSELF OR SOMEONE ELSE? NO . ARE YOU ABUSED, NEGLECTED, OR IN AN UNSAFE ENVIRONMENT? NO . ENDOCRINOLOGY: ARE YOU DIABETIC? NO . OTHER: DO YOU NEED ANY PRESCRIPTIONS? NO . IF YES, PLEASE LIST: ____ . ANY NEW PROBLEMS WITH YOUR MEDICATIONS? NO . WHEN DID YOU LAST EAT? 07/05/17@1830 . WHEN DID YOU LAST DRINK? ____07/05/17@07/05/17 . WHAT DID YOU LAST DRINK? ____WATER . NAME OF PERSON DRIVING YOU HOME? ____ARPIT WARREN . DO YOU HAVE ANY OTHER QUESTIONS OR CONCERNS NO . VITAL SIGNS WT 154 LBS, HT 64 IN, BMI 26.43 INDEX, BP 138/83 MM HG, HR 66 /MIN, RR 18 /MIN, TEMP 98.7 F, OXYGEN SAT % 96, SAFE IN ENV? (Y/N) YES, REVIEWED BY: SHYANN. ASSESSMENTS SPONDYLOSIS OF LUMBAR REGION WITHOUT MYELOPATHY OR RADICULOPATHY - M47.816 (PRIMARY) SPONDYLOSIS OF LUMBOSACRAL REGION WITHOUT MYELOPATHY OR RADICULOPATHY - M47.817 PROCEDURES PN LUMBAR FACET BLOCK THERAPEUTIC PRE PROCEDURE DIAGNOSIS LUMBAR SPONDYLOSIS, LUMBOSACRAL SPONDYLOSIS POST PROCEDURE DIAGNOSIS LUMBAR SPONDYLOSIS, LUMBOSACRAL SPONDYLOSIS PROCEDURE BILATERAL L4-L5 AND BILATERAL L5-S1 LUMBAR FACET THERAPEUTIC BLOCK SURGEON DR. NICHOLAS STEEN SIGNING AGENT NONE ANESTHESIA LOCAL PRE PROCEDURE NOTE THE PATIENT HAS A HISTORY OF CHRONIC LOW BACK PAIN. I EVALUATE THE PATIENT AND REVIEWED THE CHART. I WENT OVER THE RISKS, ALTERNATIVES, AND BENEFITS ASSOCIATED WITH THIS PROCEDURE. THE PATIENT WOULD LIKE TO PROCEED AND GIVE CONSENT TO PERFORMED THE PROCEDURE. THE PATIENT DENIES UNEXPLAINABLE WEIGHT LOSS, FEVER, CHILLS, OR NEW CHANGES IN URINARY OR BOWEL CONTROL DESCRIPTION OF PROCEDURE THE PATIENT WAS BROUGHT TO THE PROCEDURE ROOM AND PLACED IN THE PRONE POSITION. THE LUMBOSACRAL AREA WAS CLEANED WITH CHLORAPREP SOLUTION AND DRAPED ASEPTICALLY. THE PROCEDURE WAS DONE UNDER STERILE CONDITIONS. I CHECKED LATERALITY AND THE LEVEL WHERE THE PROCEDURE WAS GOING TO BE PERFORMED WITH THE PATIENT AND THE SUPPORTING STAFF AT THE MOMENT OF THE TIME OUT IN THE PROCEDURE ROOM. UNDER FLUOROSCOPIC GUIDANCE, THE TARGET POINT WAS SELECTED AT THE RIGHT AND LEFT L4-L5 AND RIGHT AND LEFT L5-S1 FACET JOINT. TARGET POINT WAS SELECTED AFTER LATERAL ROTATION AND TILT OF THE MAGNIFIER OF THE C-ARM. LIDOCAINE 0.5% WAS USED TO NUMB THE SKIN AND THE SUBCUTANEOUS TISSUE BELOW IT. SPINAL NEEDLES, 22-GAUGE, WERE ADVANCED UNDER FLUOROSCOPIC GUIDANCE AND FOLLOWING PATIENT FEEDBACK UNTIL THE TARGETS WERE TOUCHED. THE POSITION OF THE NEEDLES WAS VERIFIED WITH AP AND LATERAL VIEWS. AFTER PROPER POSITION OF THE NEEDLES WAS ACHIEVED, ISOVUE-M DYE 30% 0.1 ML WAS INJECTED SHOWING ADEQUATE SPREAD OF THE DYE. THEN A SOLUTION OF 1.9 ML OF BUPIVACAINE 0.125% OF KENALOG 10 MG WAS INJECTED AT EACH SITE. THERE WAS NO EVIDENCE OF BLOOD, PARESTHESIA OR CEREBROSPINAL FLUID DURING THE PROCEDURE. THE PATIENT WAS SENT TO THE RECOVERY ROOM. THE PATIENT WAS MOVING THE EXTREMITIES AND DOING WELL. THERE WAS NO COMPLICATION DURING THE PROCEDURE. FLUOROSCOPY TIME WAS 36 SECONDS POST PROCEDURE NOTE THE PATIENT WILL BE SEEN IN A FOLLOW UP IN THE NEXT FEW WEEKS. INSTRUCTIONS WERE GIVEN, QUESTIONS WERE ANSWERED, AND THE PATIENT EXPRESSED UNDERSTANDING AND AGREES WITH THE PLAN. I, SANDY ARAGON, DOCUMENTED THE ABOVE INFORMATION ACTING A SCRIBE FOR DR. STEEN. I HAVE REVIEWED THE ABOVE DOCUMENT, WRITTEN BY SANDY TURKIBTrish AND I VERIFY THAT IT IS ACCURATE DIAGNOSTIC IMAGING [facility] FACET BLOCK (PAIN)[id number] PROCEDURE CODES 46362 INJ PARAVERT F JNT L/S 1 LEV 16301 INJ PARAVERT F JNT L/S 2 LEV 6045F RADXPS IN END [id number] PXD DISPOSITION & COMMUNICATION FOLLOW UP 3 WEEKS ELECTRONICALLY SIGNED BY NICHOLAS STEEN MD ON 07/06/2017 AT 01:11 PM EDT DISCLAIMER : THIS IS A VISIT SUMMARY EXTRACTED FROM THE [employer] CHART. IT IS NOT A COPY OF THE [employer] PROGRESS NOTE. MTDTemo
== END ==
LOC: M PAIN 08:30
PROVIDERS: ATTEND Anesthesiology
DX: M47.816 Spondylosis without myelopathy or radiculopathy, lumbar region (principal); M47.817 Spondylosis without myelopathy or radiculopathy, lumbosacral region; G89.29 Other chronic pain; F17.210 Nicotine dependence, cigarettes, uncomplicated; Z79.899 Other long term (current) drug therapy; Z88.2 Allergy status to sulfonamides; J30.9 Allergic rhinitis, unspecified; Z88.8 Allergy status to other drugs, medicaments and biological substances
CPT/HCPCS: 64493; 64494; J3301; Q9967

== ENCOUNTER → 2017-07-28 | Outpatient (CLI) | payer MEDICARE, MEDICAID ==
[~2017-07-28] MED LIST changes: -BUPIVACAINE HCL 0.25% 30 ML VIAL As Ordered ONE; -ISOVUE-M 300 61% 15ML VIAL (Q9967) As Ordered ONE; -LIDOCAINE 1% SDV INJ 30 ML VIAL As Ordered ONE; -TRIAMCINOLONE ACETONIDE SUSP 40 MG/ML VIAL (J3301) As Ordered ONE; -diazePAM 5 MG TAB As Ordered ONE; -oxyCODONE 5MG TAB As Ordered ONE
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
== END ==
LOC: M PAIN 13:45
PROVIDERS: ATTEND Nurse Practitioner Family
DX: G89.29 Other chronic pain (principal); M51.17 Intervertebral disc disorders with radiculopathy, lumbosacral region; M12.88 Other specific arthropathies, not elsewhere classified, other specified site; J44.9 Chronic obstructive pulmonary disease, unspecified; R76.11 Nonspecific reaction to tuberculin skin test without active tuberculosis; K44.9 Diaphragmatic hernia without obstruction or gangrene; F31.9 Bipolar disorder, unspecified; F17.210 Nicotine dependence, cigarettes, uncomplicated; Z88.2 Allergy status to sulfonamides; Z88.6 Allergy status to analgesic agent; Z79.899 Other long term (current) drug therapy

== ENCOUNTER → 2017-08-06 | Outpatient (REF) | payer MEDICARE, MEDICAID | LOC: M LAB REF 13:12 | PROVIDERS: ATTEND Physician Assistant | DX: J02.9 Acute pharyngitis, unspecified (principal) ==

== ENCOUNTER → 2017-08-18 | Outpatient (REF) | payer MEDICARE, MEDICAID | LOC: M SMT 16:52 | PROVIDERS: ATTEND Nurse Practitioner Women's Health | DX: R39.15 Urgency of urination (principal) | CPT/HCPCS: 51798; 81001; 87086; G0463 ==

== ENCOUNTER → 2017-09-16 | Outpatient (CLI) | payer MEDICARE, MEDICAID ==
[2017-09-16 13:13] LABS: ALBUMIN 3.8 GM/DL (3.2-5.2); ALBUMIN/GLOBULIN RATIO 1.06 (1.00-1.93); ALKALINE PHOSPHATASE 55 U/L (45-117); ALT/SGPT 34 U/L (12-78); AST/SGOT 24 U/L (7-37); BILIRUBIN,DIRECT < 0.1 MG/DL (0.0-0.2); BILIRUBIN,TOTAL 0.3 MG/DL (0.2-1.0); TOTAL PROTEIN 7.4 GM/DL (6.4-8.2)
== END ==
LOC: M LAB 12:28
PROVIDERS: ATTEND Physician Assistant
DX: R21 Rash and other nonspecific skin eruption (principal)

== ENCOUNTER → 2017-09-17 | Outpatient (REF) | payer MEDICARE, MEDICAID | LOC: M SMT 16:59 | PROVIDERS: ATTEND Nurse Practitioner Family | DX: R31.29 Other microscopic hematuria (principal) | CPT/HCPCS: 51798; 81001; G0463 ==

== ENCOUNTER → 2017-11-28 | Outpatient (REF) | payer MEDICARE, MEDICAID ==
[2017-11-28 17:55] LABS: INFLUENZA A AMPLIFICATION POSITIVE (NEGATIVE); INFLUENZA B AMPLIFICATION NEGATIVE (NEGATIVE); RSV AMPLIFICATION NEGATIVE (NEGATIVE)
== END ==
LOC: M LAB REF 15:05
DX: J11.1 Influenza due to unidentified influenza virus with other respiratory manifestations (principal)
CPT/HCPCS: 87631

== ENCOUNTER 2018-09-24 09:51 | Emergency (ER) | payer MEDICARE, MEDICAID ==
[2018-09-24] MEDS: ASPIRIN 81 MG CHEW TABLET PO (10:28)
[2018-09-24 10:35] LABS: BASO % 0.4 % (0.0-1.0); EOS # 0.1 10^3/uL (0.0-0.50); EOS % 1.2 % (0.0-3.0); HEMATOCRIT 41.8 % (42.0-52.0); HEMOGLOBIN 14.5 g/dl (13.5-17.5); IMMATURE GRANULOCYTE % 0.3 % (0-3.0); LYMPH % 26.6 % (24.0-44.0); MEAN CORPUSCULAR HEMOGLOBIN 34.4 pg (27.0-33.0); MEAN CORPUSCULAR HGB CONC 34.7 g/dl (32.0-36.5); MEAN CORPUSCULAR VOLUME 99.3 fl (80.0-96.0); MONO # 0.9 10^3/uL (0.0-0.8); MONO % 12.7 % (0.0-5.0); NEUTROPHILS # 4.3 10^3/uL (1.8-7.7); NEUTROPHILS % 58.8 % (36.0-66.0); PLATELET COUNT, AUTOMATED 239 10^3/uL (150-450); RED BLOOD COUNT 4.21 10^6/uL (4.30-6.10); WHITE BLOOD COUNT 7.3 10^3/uL (4.0-10.0)
[2018-09-24 10:58] LABS: ANION GAP 6 MEQ/L (8-16); BLOOD UREA NITROGEN 10 MG/DL (7-18); CALCIUM LEVEL 8.9 MG/DL (8.5-10.1); CARBON DIOXIDE LEVEL 29 MEQ/L (21-32); CHLORIDE LEVEL 105 MEQ/L (98-107); CPK CREATINE PHOSPHOKINASE 389 U/L (39-308); CREATININE FOR GFR 0.86 MG/DL (0.70-1.30); GLOMERULAR FILTRATION RATE > 60.0 (>60); GLUCOSE, FASTING 126 MG/DL (70-100); MB/CK RELATIVE INDEX 1.62 (< OR =4); POTASSIUM SERUM 4.7 MEQ/L (3.5-5.1); SODIUM LEVEL 140 MEQ/L (136-145); TROPONIN I 0.02 NG/ML (< 0.10)
[2018-09-24 13:24] LABS: CPK CREATINE PHOSPHOKINASE 350 U/L (39-308); MB/CK RELATIVE INDEX 1.63 (< OR =4); TROPONIN I 0.02 NG/ML (< 0.10)
== END 2018-09-24 14:58 | disposition home or self-care (01) ==
LOC: M ED 09:51
DX: S46.202A Unspecified injury of muscle, fascia and tendon of other parts of biceps, left arm, initial encounter (principal); Y99.9 Unspecified external cause status; K21.9 Gastro-esophageal reflux disease without esophagitis; J44.9 Chronic obstructive pulmonary disease, unspecified; G89.29 Other chronic pain; M54.5 Low back pain; F31.9 Bipolar disorder, unspecified
CPT/HCPCS: 71046

== ENCOUNTER → 2019-09-22 | Outpatient (REF) | payer MEDICARE ==
[~2019-09-22] MED LIST changes: -GABA-282 PO; +GABA-843 PO; +NAPR-837 PO; -NAPR500T PO; +OMEP-172 PO; -OMEP20CA3 PO; -OMEP40CA2 PO; +OMEP40CA97 PO; +TIZA2CAP PO; +TRAZ-252 PO; -TRAZ50TA11 PO
[2019-09-22 14:10] LABS: ALBUMIN 3.3 GM/DL (3.2-5.2); ALT/SGPT 39 U/L (12-78); BILIRUBIN,TOTAL 0.3 MG/DL (0.2-1.0); BLOOD UREA NITROGEN 9 MG/DL (7-18); CALCIUM LEVEL 9.2 MG/DL (8.5-10.1); CARBON DIOXIDE LEVEL 32 MEQ/L (21-32); CHLORIDE LEVEL 104 MEQ/L (98-107); CREATININE FOR GFR 0.74 MG/DL (0.70-1.30); GLOMERULAR FILTRATION RATE > 60.0 (>56); GLUCOSE, FASTING 79 MG/DL (70-100); POTASSIUM SERUM 4.1 MEQ/L (3.5-5.1); SODIUM LEVEL 141 MEQ/L (136-145); TOTAL PROTEIN 7.1 GM/DL (6.4-8.2); VALPROIC ACID (DEPAKOTE) 10.4 UG/ML (50.0-100.0)
== END ==
LOC: M SFHCPLAZ 10:54
PROVIDERS: ATTEND Family Medicine
DX: Z51.81 Encounter for therapeutic drug level monitoring (principal)
CPT/HCPCS: 36415; 80053; 80164; G0463

== ENCOUNTER → 2019-11-17 | Outpatient (REF) | payer MEDICARE ==
[~2019-11-17] MED LIST changes: -OMEP-172 PO; +OMEP1CAP73 PO
[2019-11-17 11:04] LABS: HEMOGLOBIN A1c 5.5 %
[2019-11-17 11:07] LABS: CHOLESTEROL RISK RATIO 3.029 (<5)
== END ==
LOC: M SFHCPLAZ 08:36
PROVIDERS: ATTEND Family Medicine
DX: Z13.1 Encounter for screening for diabetes mellitus (principal); Z13.220 Encounter for screening for lipoid disorders; Z79.899 Other long term (current) drug therapy; Z23 Encounter for immunization
CPT/HCPCS: 36415; 80061; 83036; 90682; 90732; G0008; G0009; G0463

== ENCOUNTER 2020-05-15 10:50 | Emergency (ER) | payer MEDICARE ==
[2020-06-10 22:43] LABS: BLOOD UREA NITROGEN 4 MG/DL (7-18); CALCIUM LEVEL 8.9 MG/DL (8.5-10.1); CARBON DIOXIDE LEVEL 31 MEQ/L (21-32); CHLORIDE LEVEL 107 MEQ/L (98-107); CREATININE FOR GFR 0.75 MG/DL (0.70-1.30); GLOMERULAR FILTRATION RATE > 60.0 (>56); GLUCOSE, FASTING 89 MG/DL (70-100); POTASSIUM SERUM 4.2 MEQ/L (3.5-5.1); SODIUM LEVEL 144 MEQ/L (136-145); TROPONIN I < 0.02 NG/ML (< 0.10)
[2020-06-15 23:16] LABS: HEMOGLOBIN 15.2 g/dl (13.5-17.5); MEAN CORPUSCULAR HEMOGLOBIN 34.4 pg (27.0-33.0); MEAN CORPUSCULAR HGB CONC 34.5 g/dl (32.0-36.5); MEAN CORPUSCULAR VOLUME 99.5 fl (80.0-96.0); PLATELET COUNT, AUTOMATED 239 10^3/uL (150-450); RED BLOOD COUNT 4.42 10^6/uL (4.30-6.10); WHITE BLOOD COUNT 9.9 10^3/uL (4.0-10.0)
--- NOTE | 2020-07-05 11:26 | ECGEPIP ---
SINUS RHYTHM NORMAL ECG NO OLD AVAILABLE SEE SCANNED DOWNTIME REPORT MTDD
--- NOTE | 2020-07-06 15:52 | REP ---
CT OF THE BRAIN WITHOUT CONTRAST: HISTORY: Rule out TIA. COMPARISON: None. FINDINGS: Digital preliminary raw stock machine feeder radiograph is unremarkable. The maxilla is edentulous. Bone window settings demonstrate an intact bony calvarium. The visualized paranasal sinuses are clear. No intraorbital abnormality is seen. On soft tissue window settings, there is minimal generalized volume loss. The elam-white differentiation pattern is intact above and below the tentorium. The lateral, third and fourth ventricles are normal in position and appearance. There is no evidence of infarct, hemorrhage, extra-axial fluid collection or mass. IMPRESSION: Minimal generalized volume loss. Otherwise negative. MTDD
== END 2020-05-15 18:40 | disposition home or self-care (01) ==
LOC: M ED 10:50
DX: G56.21 Lesion of ulnar nerve, right upper limb (principal); J45.909 Unspecified asthma, uncomplicated; F33.9 Major depressive disorder, recurrent, unspecified; F41.9 Anxiety disorder, unspecified; K21.9 Gastro-esophageal reflux disease without esophagitis; G47.33 Obstructive sleep apnea (adult) (pediatric); M26.609 Unspecified temporomandibular joint disorder, unspecified side; Z86.69 Personal history of other diseases of the nervous system and sense organs; Z79.899 Other long term (current) drug therapy; Z88.2 Allergy status to sulfonamides; F17.210 Nicotine dependence, cigarettes, uncomplicated

== ENCOUNTER → 2020-09-06 | Outpatient (CLI) | payer MEDICARE | LOC: M LABSMTC 14:04 | PROVIDERS: ATTEND Family Medicine | DX: Z20.828 Contact with and (suspected) exposure to other viral communicable diseases (principal) ==

== ENCOUNTER → 2021-02-07 | Outpatient (REF) | payer MEDICARE ==
[~2021-02-07] MED LIST changes: +GABA-282 PO; -GABA-843 PO
[2021-02-07 10:46] LABS: HEMATOCRIT 48.2 % (42.0-52.0); HEMOGLOBIN 16.5 g/dl (13.5-17.5); MEAN CORPUSCULAR HEMOGLOBIN 35.4 pg (27.0-33.0); MEAN CORPUSCULAR HGB CONC 34.2 g/dl (32.0-36.5); MEAN CORPUSCULAR VOLUME 103.4 fl (80.0-96.0); PLATELET COUNT, AUTOMATED 250 10^3/uL (150-450); RED BLOOD COUNT 4.66 10^6/uL (4.30-6.10); WHITE BLOOD COUNT 8.8 10^3/uL (4.0-10.0)
[2021-02-07 11:06] LABS: HEMOGLOBIN A1c 4.9 %
[2021-02-07 11:15] LABS: ALBUMIN 3.9 GM/DL (3.2-5.2); ALT/SGPT 46 U/L (12-78); BILIRUBIN,TOTAL 0.5 MG/DL (0.2-1.0); BLOOD UREA NITROGEN 9 MG/DL (7-18); CALCIUM LEVEL 9.4 MG/DL (8.5-10.1); CARBON DIOXIDE LEVEL 29 MEQ/L (21-32); CHLORIDE LEVEL 104 MEQ/L (98-107); CHOLESTEROL LEVEL 191 MG/DL (<200); CHOLESTEROL RISK RATIO 1.836 (<5); CREATININE FOR GFR 0.63 MG/DL (0.70-1.30); GLOMERULAR FILTRATION RATE > 60.0 (>56); GLUCOSE, FASTING 78 MG/DL (70-100); HDL CHOLESTEROL 104 MG/DL (>40); LDL CHOLESTEROL 76 MG/DL (<100); NON-HDL-C 87 MG/DL; POTASSIUM SERUM 5.2 MEQ/L (3.5-5.1); SODIUM LEVEL 137 MEQ/L (136-145); TOTAL PROTEIN 7.2 GM/DL (6.4-8.2); TRIGLYCERIDES LEVEL 54 MG/DL (<150); VALPROIC ACID (DEPAKOTE) 4.8 UG/ML (50.0-100.0)
== END ==
LOC: M SFHCPLAZ 09:45
PROVIDERS: ATTEND Family Medicine
DX: Z51.81 Encounter for therapeutic drug level monitoring (principal); Z13.1 Encounter for screening for diabetes mellitus; Z13.220 Encounter for screening for lipoid disorders; Z79.899 Other long term (current) drug therapy
CPT/HCPCS: 36415; 80053; 80061; 80164; 83036; 85027; G0463

== ENCOUNTER → 2021-05-17 | Outpatient (CLI) | payer MEDICARE ==
[~2021-05-17] MED LIST changes: +ALEV220T22 PO; +CETI10CH PO; +OMEP40CA4 PO; -OMEP40CA97 PO; +VENTAER INH
== END ==
LOC: M LABSMTC 10:29
PROVIDERS: ATTEND Anesthesiology
DX: Z01.812 Encounter for preprocedural laboratory examination (principal); Z20.822 Contact with and (suspected) exposure to COVID-19

== ENCOUNTER → 2021-05-18 | Outpatient (REF) | payer MEDICARE | LOC: M LAB REF 14:00 | PROVIDERS: ATTEND Internal Medicine Gastroenterology | DX: K58.0 Irritable bowel syndrome with diarrhea (principal); K21.9 Gastro-esophageal reflux disease without esophagitis ==

== ENCOUNTER 2021-05-22 09:39 | Day surgery (SDC) | payer MEDICARE ==
[~2021-05-22] VITALS: Ht 165.1 cm; Wt 59.0 kg
[~2021-05-22 09:39] MED LIST changes: +NS 1,000 ML IV ONE
[2021-05-22] MEDS ORDERED: propofoL 200 MG/20 ML VIAL As Ordered ONE (10:13)
[2021-05-22] MEDS ORDERED: fentaNYL 100 MCG/2 ML INJECTION (J3010) As Ordered ONE (10:13)
[2021-05-22] MEDS ORDERED: LIDOCAINE 2% 100MG/5ML SDV (FOR ANES.) As Ordered ONE (10:13)
--- NOTE | 2021-05-22 10:39 | ROOR ---
Patient Name: Casey Ojeda Procedure Date: 05/22/2021 10:20 AM Date of : 1970 Age: 51 Room: [facility] Gender: Male Note Status: Finalized Procedure: Upper Endoscopy + Biopsies Indications: Heartburn, Exclusion of Stephens's esophagus Providers: Kyle Gerber MD Referring MD: Natalie Ye MD Requesting Provider: Medicines: Monitored Anesthesia Care Complications: No immediate complications. Procedure: Pre-Anesthesia Assessment: - The heart rate, respiratory rate, oxygen saturations, blood pressure, adequacy of pulmonary ventilation, and response to care were monitored throughout the procedure. The Endoscope was introduced through the mouth, and advanced to the second part of duodenum. The upper GI endoscopy was accomplished without difficulty. The patient tolerated the procedure well. Findings: The Z-line was variable and was found 40 cm from the incisors. Multiple biopsies were obtained with cold forceps for evaluation to rule out Stephens's Esophagus randomly at the gastroesophageal junction. A medium-sized hiatal hernia was present. Localized mild inflammation characterized by congestion (edema), erosions and erythema was found in the gastric antrum. Biopsies were taken with a cold forceps for Helicobacter pylori testing. The exam of the duodenum was otherwise normal. Impression: - Z-line variable, 40 cm from the incisors. - Medium-sized hiatal hernia. - Mucosal changes suspicious for gastritis. Biopsied. - Multiple biopsies were obtained at the gastroesophageal junction. - The examination was otherwise normal. Recommendation: - Patient has a contact number available for emergencies. The signs and symptoms of potential delayed complications were discussed with the patient. Return to normal activities tomorrow. Written discharge instructions were provided to the patient. - High fiber diet. - Discharge patient to home. - Follow an antireflux regimen. - Continue present medications. - Await pathology results. - Telephone GI clinic for pathology results in 1 week. - Return to referring physician. - The findings and recommendations were discussed with the patient's family. Procedure Code(s): --- Professional --- 70881, Esophagogastroduodenoscopy, flexible, transoral; with biopsy, single or multiple Diagnosis Code(s): --- Professional --- K22.8, Other specified diseases of esophagus K44.9, Diaphragmatic hernia without obstruction or gangrene K31.89, Other diseases of stomach and duodenum R12, Heartburn CPT copyright 2019 [employer]. All rights reserved. The codes documented in this report are preliminary and upon label coder review may be revised to meet current compliance requirements. Kyle Gerber MD Kyle Gerber MD 05/22/2021 10:39:26 AM Electronically signed by Kyle Gerber MD Number of Addenda: 0 Note Initiated On: 05/22/2021 10:20 AM Estimated Blood Loss: Estimated blood loss: none.
--- NOTE | 2021-05-22 10:57 | ROOR ---
Patient Name: Casey Ojeda Procedure Date: 05/22/2021 10:20 AM Date of : 1970 Age: 51 Room: [facility] Gender: Male Note Status: Finalized Procedure: Total Colonoscopy to Cecum + ileoscopy + Bx Indications: Clinically significant diarrhea of unexplained origin Providers: Kyle Gerber MD Referring MD: Natalie Ye MD Requesting Provider: Medicines: Monitored Anesthesia Care Complications: No immediate complications. Procedure: Pre-Anesthesia Assessment: - The heart rate, respiratory rate, oxygen saturations, blood pressure, adequacy of pulmonary ventilation, and response to care were monitored throughout the procedure. The Colonoscope was introduced through the anus and advanced to the terminal ileum, with identification of the appendiceal orifice and IC valve. The colonoscopy was performed without difficulty. The patient tolerated the procedure well. The quality of the bowel preparation was good. Findings: The perianal and digital rectal examinations were normal. Non-bleeding internal hemorrhoids were found during retroflexion. The hemorrhoids were small and Grade I (internal hemorrhoids that do not prolapse). No other significant abnormalities were identified in a careful examination of the remainder of the colon. The terminal ileum appeared normal. Biopsies for histology were taken with a cold forceps from the ascending colon, transverse colon, descending colon and rectosigmoid colon for evaluation of microscopic colitis. The exam was otherwise without abnormality on direct and retroflexion views. Impression: - Non-bleeding internal hemorrhoids. - The examined portion of the ileum was normal. - The examination was otherwise normal on direct and retroflexion views. - Biopsies were taken with a cold forceps from the ascending colon, transverse colon, descending colon and rectosigmoid colon for evaluation of microscopic colitis. - The exam was otherwise normal to the cecum. Recommendation: - Patient has a contact number available for emergencies. The signs and symptoms of potential delayed complications were discussed with the patient. Return to normal activities tomorrow. Written discharge instructions were provided to the patient. - High fiber diet. - Discharge patient to home. - Continue present medications. - Await pathology results. - Telephone GI clinic for pathology results in 1 week. - Repeat colonoscopy in 7 years for screening purposes. - Return to referring physician. - The findings and recommendations were discussed with the patient's family. Procedure Code(s): --- Professional --- 39345, Colonoscopy, flexible; with biopsy, single or multiple Diagnosis Code(s): --- Professional --- K64.0, First degree hemorrhoids R19.7, Diarrhea, unspecified CPT copyright 2019 [employer]. All rights reserved. The codes documented in this report are preliminary and upon remote coders review may be revised to meet current compliance requirements. Kyle Gerber MD Kyle Gerber MD 05/22/2021 10:56:37 AM Electronically signed by Kyle Gerber MD Number of Addenda: 0 Note Initiated On: 05/22/2021 10:20 AM Estimated Blood Loss: Estimated blood loss: none.
[2021-05-22 11:15] VITALS: BP 142/74
== END 2021-05-22 11:23 | disposition home or self-care (01) ==
LOC: M OPP 09:39
PROVIDERS: ATTEND Internal Medicine Gastroenterology
DX: R19.7 Diarrhea, unspecified (principal); K64.0 First degree hemorrhoids; Z80.0 Family history of malignant neoplasm of digestive organs; K22.8 Other specified diseases of esophagus; K44.9 Diaphragmatic hernia without obstruction or gangrene; K31.89 Other diseases of stomach and duodenum; R12 Heartburn; Z79.899 Other long term (current) drug therapy; Z88.2 Allergy status to sulfonamides; F17.210 Nicotine dependence, cigarettes, uncomplicated
CPT/HCPCS: 43239; 45380; 88305; J3010

== ENCOUNTER → 2022-01-02 | Outpatient (CLI) | payer MEDICARE ==
[~2022-01-02] MED LIST changes: -NS 1,000 ML IV ONE
== END ==
LOC: M WUC 11:07
PROVIDERS: ATTEND Physician Assistant
DX: M54.2 Cervicalgia (principal)

== ENCOUNTER → 2022-01-09 | Outpatient (CLI) | payer MEDICARE | LOC: M RAD 15:14 | PROVIDERS: ATTEND Physician Assistant | DX: M25.512 Pain in left shoulder (principal) ==

== ENCOUNTER → 2022-01-31 | Outpatient (CLI) | payer MEDICARE ==
[2022-01-31 15:07] LABS: HEMATOCRIT 46.4 % (42.0-52.0); HEMOGLOBIN 15.9 g/dl (13.5-17.5); MEAN CORPUSCULAR HEMOGLOBIN 35.3 pg (27.0-33.0); MEAN CORPUSCULAR HGB CONC 34.3 g/dl (32.0-36.5); MEAN CORPUSCULAR VOLUME 102.9 fl (80.0-96.0); PLATELET COUNT, AUTOMATED 259 10^3/uL (150-450); RED BLOOD COUNT 4.51 10^6/uL (4.30-6.10); WHITE BLOOD COUNT 8.4 10^3/uL (4.0-10.0)
[2022-01-31 15:28] LABS: HEMOGLOBIN A1c 5.2 %
[2022-01-31 15:41] LABS: ALBUMIN 4.1 GM/DL (3.2-5.2); ALT/SGPT 31 U/L (12-78); BILIRUBIN,TOTAL 0.4 MG/DL (0.2-1.0); BLOOD UREA NITROGEN 9 MG/DL (7-18); CALCIUM LEVEL 9.5 MG/DL (8.5-10.1); CARBON DIOXIDE LEVEL 31 MEQ/L (21-32); CHLORIDE LEVEL 105 MEQ/L (98-107); CHOLESTEROL LEVEL 205 MG/DL (<200); CHOLESTEROL RISK RATIO 2.204 (<5); CREATININE FOR GFR 0.75 MG/DL (0.70-1.30); GLOMERULAR FILTRATION RATE > 60.0 (>56); GLUCOSE, FASTING 109 MG/DL (70-100); HDL CHOLESTEROL 93 MG/DL (>40); LDL CHOLESTEROL 105 MG/DL (<100); NON-HDL-C 112 MG/DL; POTASSIUM SERUM 4.6 MEQ/L (3.5-5.1); SODIUM LEVEL 140 MEQ/L (136-145); TOTAL PROTEIN 7.1 GM/DL (6.4-8.2); TRIGLYCERIDES LEVEL 34 MG/DL (<150); VALPROIC ACID (DEPAKOTE) 26.3 UG/ML (50.0-100.0)
[2022-01-31 15:44] LABS: VITAMIN B12 LEVEL 491 PG/ML (247-911)
== END ==
LOC: M PLALAB 12:45
PROVIDERS: ATTEND Family Medicine
DX: D75.89 Other specified diseases of blood and blood-forming organs (principal); Z51.81 Encounter for therapeutic drug level monitoring; Z12.5 Encounter for screening for malignant neoplasm of prostate; Z13.220 Encounter for screening for lipoid disorders; Z79.899 Other long term (current) drug therapy
CPT/HCPCS: 36415; 80053; 80061; 80164; 82607; 82747; 83036; 84443; 85027; G0103

== ENCOUNTER 2023-05-23 02:23 | Emergency (ER) | payer MEDICARE, SELFPAY ==
[~2023-05-23] VITALS: Ht 160 cm; Wt 65.8 kg
[2023-05-23] MEDS ORDERED: ASPIRIN 81MG CHEW TABLET PO ONE (02:30)
[2023-05-23 02:40] VITALS: TEMP 98.3
[2023-05-23] MEDS ORDERED: LIDOCAINE 5% (LIDODERM) PATCH TD ONE (02:50)
[2023-05-23] MEDS ORDERED: PERCOCET 5MG/325MG TAB PO ONE (02:50)
[2023-05-23 02:53] LABS: BASO # 0.1 10^3/uL (0.0-0.2); BASO % 0.9 % (0.0-1.0); EOS # 0.3 10^3/uL (0.0-0.5); EOS % 3.2 % (0.0-3.0); HEMATOCRIT 43.4 % (42.0-52.0); HEMOGLOBIN 15.3 g/dl (13.5-17.5); LYMPH # 3.6 10^3/uL (1.5-5.0); LYMPH % 44.2 % (24.0-44.0); MEAN CORPUSCULAR HEMOGLOBIN 35.2 pg (27.0-33.0); MEAN CORPUSCULAR HGB CONC 35.3 g/dl (32.0-36.5); MEAN CORPUSCULAR VOLUME 99.8 fl (80.0-96.0); MONO # 0.7 10^3/uL (0.0-0.8); MONO % 8.7 % (2.0-8.0); NEUTROPHILS # 3.4 10^3/uL (1.5-8.5); NEUTROPHILS % 42.8 % (36.0-66.0); PLATELET COUNT, AUTOMATED 255 10^3/uL (150-450); RED BLOOD COUNT 4.35 10^6/uL (4.30-6.10)
[2023-05-23 03:05] LABS: INR 0.91; PROTHROMBIN TIME 12.4 SECONDS (12.5-14.5)
[2023-05-23 03:06] LABS: PARTIAL THROMBOPLASTIN TIME 27.4 SECONDS (24.8-34.2)
[2023-05-23 03:17] LABS: LIPASE 197 U/L (12-53)
[2023-05-23 03:18] LABS: CK-MB VALUE MASS 2.2 NG/ML (<3.6)
[2023-05-23 03:21] LABS: THYROID STIMULATING HORMONE 2.599 uIU/ML (0.55-4.78)
[2023-05-23 03:23] LABS: ALBUMIN 3.4 G/DL (3.2-5.2); ALKALINE PHOSPHATASE 61 U/L (46-116); ALT/SGPT 38 U/L (7.0-40); AST/SGOT 43 U/L (<34); BILIRUBIN,DIRECT 0.1 MG/DL (<0.4); BILIRUBIN,TOTAL 0.3 MG/DL (0.3-1.2); BLOOD UREA NITROGEN < 5 MG/DL (9-23); CALCIUM LEVEL 8.4 MG/DL (8.5-10.1); CARBON DIOXIDE LEVEL 26 MMOL/L (20-31); CHLORIDE LEVEL 107 MMOL/L (98-107); CPK CREATINE PHOSPHOKINASE 278 U/L (46-171); CREATININE FOR GFR 0.53 MG/DL (0.70-1.30); GLOMERULAR FILTRATION RATE > 60.0 (>56); GLUCOSE, FASTING 82 MG/DL (60-100); MB/CK RELATIVE INDEX 0.79 (< OR =4); POTASSIUM SERUM 4.1 MMOL/L (3.5-5.1); SODIUM LEVEL 143 MMOL/L (136-145); TOTAL PROTEIN 6.4 G/DL (5.7-8.2)
[2023-05-23 03:27] LABS: RSV AMPLIFICATION NEGATIVE (NEGATIVE)
[2023-05-23] MEDS ORDERED: NS 1,000 ML IV ONE (03:45)
[2023-05-23] MEDS ORDERED: LIDO5DIS41 TD (04:34)
[2023-05-23] MEDS ORDERED: PERC5TAB12 PO (04:34)
[2023-05-23 04:53] VITALS: O2SAT 96
[2023-05-23 05:00] VITALS: BP 116/65
== END 2023-05-23 05:31 | disposition home or self-care (01) ==
LOC: EDBD 02:23 → M ED 02:23
DX: R07.89 Other chest pain (principal); K86.1 Other chronic pancreatitis; K21.9 Gastro-esophageal reflux disease without esophagitis; J44.9 Chronic obstructive pulmonary disease, unspecified; F32.A Depression, unspecified; F17.200 Nicotine dependence, unspecified, uncomplicated; Z88.2 Allergy status to sulfonamides; Z79.51 Long term (current) use of inhaled steroids; Z79.899 Other long term (current) drug therapy